=== PATIENT | female | born 1995 ===

== ENCOUNTER 2021-09-04 11:20 | Emergency (ER) | payer OTHER ==
[~2021-09-04] VITALS: Ht 160 cm; Wt 77.3 kg
[2021-09-04 11:53] VITALS: TEMP 98.4
[2021-09-04 12:13] LABS: HEMATOCRIT 41.5 % (37.0-47.0); HEMOGLOBIN 14.2 g/dl (12.5-16.0); MEAN CELL VOLUME 88 fl (80.0-100.0); MEAN CORPUSCULAR HEMOGLOBIN 30 pg (27-31); MEAN CORPUSCULAR HGB CONC 34 g/dl (33.0-37.0); MEAN PLATELET VOLUME 9.3 fl (7.4-10.4); PLATELET COUNT 204 K/mm3 (130-400); RED BLOOD COUNT 4.72 M/mm3 (4.10-5.30); REDCELL DISTRIBUTION WIDTH-CV 12.1 % (11.5-14.5)
[2021-09-04 12:31] LABS: ALBUMIN 3.9 gm/dL (3.5-5.0); BILIRUBIN,TOTAL 0.9 mg/dL (0.2-1.2); CALCIUM 8.4 mg/dL (8.4-10.2); CREATININE, serum 0.77 mg/dL (0.57-1.11); POTASSIUM 3.9 mmol/L (3.5-4.5); TOTAL PROTEIN 7.1 gm/dL (6.2-8.1)
[2021-09-04 12:53] LABS: LYMPHOCYTE 3 % (20.0-51.0); NEUTROPHILS 94 % (42.0-75.2)
[2021-09-04 12:54] LABS: PLATELET ESTIMATE NORMAL (NORMAL)
[2021-09-04 13:26] VITALS: BP 111/63; PULSE 83
[2021-09-04] MEDS ORDERED: ZOFRAN ODT4 MG PO (13:34)
== END 2021-09-04 13:46 | disposition home or self-care (01) ==
LOC: COL.ER 11:20
PROVIDERS: Emergency Medicine
DX: K52.9 Noninfective gastroenteritis and colitis, unspecified (principal); R55 Syncope and collapse
CPT/HCPCS: J2405; J7030